=== PATIENT | male | born 1980 | race African-American/Black ===

== ENCOUNTER 2021-03-22 00:24 | Emergency (ER) | payer OTHER, SELFPAY ==
--- NOTE | 2021-03-22 | ECG_ITS ---
Test Reason : SEIZURE Blood Pressure : / mmHG Vent. Rate : 088 BPM Atrial Rate : 088 BPM P-R Int : 140 ms QRS Dur : 082 ms QT Int : 354 ms P-R-T Axes : 061 039 015 degrees QTc Int : 428 ms Normal sinus rhythm Early repolarization Abnormal ECG When compared with ECG of 31-DEC-2018 13:21, No significant change was found Referred By: Albert Johnson Electronically Signed By:LONG BAKER
[2021-03-22 00:36] VITALS: BP 122/58; BP 138/78; PULSE 100; PULSE 90; RESP 15; TEMP 36.7; O2SAT 100; O2SAT 98; BMI 24.4
--- NOTE | 2021-03-22 00:57 | ED.SEIZURE ---
HPI - Seizure General Chief Complaint: Seizure Stated Complaint: seizure Time Seen by Provider: 03/22/21 00:56 Source: EMS and old records reviewed Mode of arrival: EMS History of Present Illness HPI Narrative: Patient has a TBI , ETOH use with recurrent seizures on zonisamide and Depakote [facility] where a [facility] for having 3 seizures today last seizure was just prior to arrival lasted for 2 minutes ,no injury, per patient he does get seizures all the time Related Data Allergies Allergy/AdvReac Type Severity Reaction Status Date / Time No Known Allergies Allergy Verified 03/22/21 00:52 [No Known Allergies*] [facility] Past Medical History Medical History (Updated 03/22/21 @ 02:31 by Albert Johnson MD) Anemia HTN (hypertension) Seizure disorder Surgical History Status post hip surgery Social History Social History Alcohol intake: unknown Patient Tobacco Use Status: Current everyday Tobacco user Use of substances other than those prescribed or required for medical reasons: No Advance Directives: No Physical Exam Vital Signs: Vital Signs: Last Vital Signs Temp 98.1 F 03/22/21 00:36 Pulse 90 03/22/21 00:36 Resp 15 03/22/21 00:36 BP 122/58 L 03/22/21 00:36 Pulse Ox 98 03/22/21 00:36 Body Mass Index 24.4 Appearance: Alert. Oriented X2-3 slow to respond Eyes: PERRLA, No Nystagmus ENT: Pharynx normal. Oral Mucosa moist no tongue bite Neck: Normal inspection. Neck supple. CVS: Normal heart rate and rhythm. Pulses normal. Respiratory: No respiratory distress. Equal air entry bilateral, no wheezing/rales/rhonchi Abdomen: Soft and nontender. Bowel sounds are present, no mass palpable, Skin: Skin warm and dry. Normal skin color. Normal skin turgor. Extremities: No lower extremity edema. No calf tenderness Neuro: Oriented X 3. No motor deficit. No sensory deficit.No cerebellar signs , cranial nerves II-XII intact MDM - Seizure MDM Narrative Medical decision making narrative: . Patient with Recurrent seizure similar to that in the past sent to the ER per protocol of the [facility] at this time patient is not postictal no active seizures, will proceed acid level is therapeutic level Patient advised to continue same medications as before and follow with neurologist Lab Data Attestation: I reviewed the patient's lab results. Result diagrams: 03/22/21 01:12 03/22/21 01:12 Labs: Lab Results 03/22/21 03/22/21 Range/Units 01:12 01:12 WBC 10.7 (4.8-10.8) X10*3/uL RBC 3.10 L (4.60-5.80) X10*6/uL Hgb 10.0 L (14.0-18.0) g/dl Hct 31.4 L (42-52) % MCV 101.3 H (80-98) fL MCH 32.3 (27.0-33.0) pg MCHC 31.8 (31.0-36.0) g/dl RDW 14.7 (11.0-16.0) % Plt Count 425 H (160-400) X10*3/uL MPV 10.3 (9.4-12.4) fL Immature Gran % (Auto) 0.4 (0.0-0.4) % Neut % (Auto) 59.6 (45-73) % Lymph % (Auto) 29.3 (20-40) % Camp % (Auto) 6.5 (2-11) % Eos % (Auto) 3.8 (0-4) % Baso % (Auto) 0.4 (0-2) % Lymph # (Auto) 3.1 (1.2-4.9) X10*3/uL Camp # (Auto) 0.7 (0.1-1.2) X10*3/uL Eos # (Auto) 0.4 (0.0-0.4) X10*3/uL Baso # (Auto) 0.0 (0.0-0.2) X10*3/uL Abs Immat Gran (auto) 0.04 H (0.00-0.03) X10*3/uL Absolute Neuts (auto) 6.4 (2.0-8.3) X10*3/uL Absolute Nucleated RBC 0.000 (0.0-0.012) X10*3/uL Nucleated RBC % (auto) 0.0 (0.0-0.2) /100WBC Sodium 142 (135-145) mmol/L Potassium 4.1 (3.3-5.1) mmol/L Chloride 113 H (96-108) mmol/L Carbon Dioxide 21 L (22-29) mmol/L Anion Gap 12 (12-20) BUN 12 (9-16) mg/dL Creatinine 0.84 (0.5-1.4) mg/dL Estim Creat Clear Calc 109.2 Estimated GFR > 60 Random Glucose 89 (60-115) mg/dL Calcium 9.0 (8.4-10.2) mg/dL Total Bilirubin < 0.2 (0.0-1.0) mg/dL AST 16 (5-37) U/L ALT 13 (0-40) U/L Alkaline Phosphatase 85 (39-117) U/L Total Protein 6.8 (6.5-8.0) g/dL Albumin 4.0 (3.5-5.0) g/dL Valproic Acid 87.9 (50.0-100.0) mcg/mL Discharge Plan Discharge Clinical Impression: Epileptic seizure Qualifiers: Epilepsy type: generalized idiopathic Intractability: not intractable Status epilepticus: without status epilepticus Qualified Code(s): G40.309 - Generalized idiopathic epilepsy and epileptic syndromes, not intractable, without status epilepticus Patient Disposition: Xfer LTC Instructions: Epilepsy (ED) Additional Instructions: Continue medications and follow with neurologist/PCP Interventions: ED Discharge Assessment Last Done: 03/22/21 03:16 Discharge Date/Time: 03/22/21 03:17
[2021-03-22 01:21] LABS: MANUAL DIFF FLAG NO
[2021-03-22 01:23] LABS: Basophils Percent Auto 0.4 % (0-2); Eosinophils Absolute Auto 0.4 X10*3/uL (0.0-0.4); Eosinophils Percent Auto 3.8 % (0-4); Hematocrit 31.4 % (42-52); Imm Gran Abs Auto 0.04 X10*3/uL (0.00-0.03); Imm Gran Pct Auto 0.4 % (0.0-0.4); Lymphocytes Absolute Auto 3.1 X10*3/uL (1.2-4.9); Lymphocytes Percent Auto 29.3 % (20-40); Mean Corpuscular HGB Conc 31.8 g/dl (31.0-36.0); Mean Corpuscular Hemoglobin 32.3 pg (27.0-33.0); Mean Corpuscular Volume 101.3 fL (80-98); Mean Platelet Volume 10.3 fL (9.4-12.4); Monocytes Absolute Auto 0.7 X10*3/uL (0.1-1.2); Monocytes Percent Auto 6.5 % (2-11); Neutrophils Absolute Auto 6.4 X10*3/uL (2.0-8.3); Neutrophils Percent Auto 59.6 % (45-73); Platelet Count 425 X10*3/uL (160-400); Red Cell Distribution Width 14.7 % (11.0-16.0); White Blood Count 10.7 X10*3/uL (4.8-10.8)
[2021-03-22 01:40] LABS: Alanine Aminotransferase 13 U/L (0-40); Alkaline Phosphatase 85 U/L (39-117); Anion Gap 12 (12-20); Aspartate Amino Transferase 16 U/L (5-37); Bilirubin Total < 0.2 mg/dL (0.0-1.0); Blood Urea Nitrogen 12 mg/dL (9-16); Carbon Dioxide 21 mmol/L (22-29); Chloride 113 mmol/L (96-108); Creatinine Clr Calc Pharmacy 109.2; Estimated Glomerular Filt Rate > 60; Glucose Random 89 mg/dL (60-115); Potassium 4.1 mmol/L (3.3-5.1); Sodium 142 mmol/L (135-145); Total Protein 6.8 g/dL (6.5-8.0)
[2021-03-22 01:43] LABS: Valproate 87.9 mcg/mL (50.0-100.0)
== END 2021-03-22 03:17 ==
PROVIDERS: Emergency Provider Internal Medicine; PCP Internal Medicine
DX: G40.909 Epilepsy, unspecified, not intractable, without status epilepticus (principal); F17.200 Nicotine dependence, unspecified, uncomplicated; Z71.6 Tobacco abuse counseling
CPT/HCPCS: 36415; 80053; 80164; 85025; 93005; 99283; 99284